=== PATIENT | female | born 1970 | race Caucasian/White ===

== ENCOUNTER 2017-03-27 21:27 | Emergency (ER) | payer OTHER ==
[2017-03-27 21:46] VITALS: BP 145/107
--- NOTE | 2017-03-27 22:57 | EDM.PDOC ---
ED HPI GENERAL MEDICAL PROBLEM - General Chief Complaint: Neck Problem Stated Complaint: [facility] Time Seen by Provider: 03/27/17 21:37 - History of Present Illness INITIAL COMMENTS - FREE TEXT/NARRATIVE: 47-year-old female presents emergency room via EMS brought in after a fairly sudden onset of sided weakness is started with left-sided shoulder spasm progressed into a left arm and left leg weakness. Patient developed speech difficulty shortly after this. Onset of symptoms approximately 8:50 PM [place] standard time. Upon arrival to the emergency room the patient is somewhat anxious she has a significant deficit on her left side her vital signs were assured to be normal and her blood sugar was okay she was rushed to CT. Past medical history significant for gastric bypass surgery in 2013, she's treated for hypothyroidism no prior history of strokes she has occasional headaches no history of significant migraines however she did have migraines when she was in grade school. Left Shoulder Pain Score (Numeric/FACES): 10 - Related Data Allergies Allergy/AdvReac Type Severity Reaction Status Date / Time cephalexin Allergy Rash Verified 06/29/14 16:23 sulfamethoxazole Allergy Rash Verified 03/27/17 21:52 [From Bactrim] trimethoprim [From Bactrim] Allergy Rash Verified 03/27/17 21:52 Home Meds: Home Meds Levothyroxine [Synthroid] 50 mcg PO DAILY 06/29/14 [History] Multivitamin [Flintstones] 1 tab PO DAILY 06/29/14 [History] Cyanocobalamin/FA/Pyridoxine [Folbic] 1 tab PO DAILY 03/28/17 [History] Meclizine [Antivert] 25 mg PO ASDIRECTED PRN 03/28/17 [History] Pantoprazole Sodium [Protonix] 40 mg PO DAILY 03/28/17 [History] Past Medical History Respiratory History: Reports: Asthma Psychiatric History: Reports: Anxiety Endocrine/Metabolic History: Reports: Hypothyroidism - Past Surgical History GI Surgical History: Reports: Bariatric Procedure, Cholecystectomy Female Surgical History: Reports: Hysterectomy Musculoskeletal Surgical History: Reports: Arthroscopic Knee, Shoulder Replacement, Other (See Below) Other Musculoskeletal Surgeries/Procedures:: hand fracture, neck fracture Social & Family History - Family History Family Medical History: Noncontributory - Tobacco Use Smoking Status *Q: Never Smoker Second Hand Smoke Exposure: Yes - Caffeine Use Caffeine Use: Reports: Coffee - Recreational Drug Use Recreational Drug Use: No ED ROS GENERAL - Review of Systems Review Of Systems: See Below Constitutional: Reports: No Symptoms HEENT: Reports: No Symptoms Respiratory: Reports: No Symptoms Cardiovascular: Reports: No Symptoms GI/Abdominal: Reports: No Symptoms Skin: Reports: No Symptoms Neurological: Reports: Headache, Numbness, Trouble Speaking, Weakness ED EXAM, NEURO - Physical Exam Exam: See Below Exam Limited By: Other (Expressive aphasia) General Appearance: Alert, Anxious Eye Exam: Bilateral Eye: EOMI, Normal Inspection, PERRL, Other (Visual terry intact bilaterally) Ears: Normal External Exam, Normal Canal, Hearing Grossly Normal, Normal TMs Nose: Normal Inspection, Normal Mucosa, No Blood Throat/Mouth: Normal Inspection, Normal Lips, Normal Gums, Normal Oropharynx, Normal Voice, No Airway Compromise Neck: Normal Inspection, Supple, Non-Tender, Full Range of Motion. No: Carotid Bruit, Lymphadenopathy (L), Lymphadenopathy (R) Respiratory/Chest: No Respiratory Distress, Lungs Clear, Normal Breath Sounds Cardiovascular: Regular Rate, Rhythm, No Edema, No Murmur GI/Abdominal: Normal Bowel Sounds, Soft, Non-Tender Neurological: Other (Subtle right-sided facial weakness significant left upper extremity and lower extremity weakness NIH stroke score of 8) Course - Vital Signs Last Recorded V/S: Last Vital Signs Temp 37.7 C 03/27/17 21:42 Pulse 102 H 03/27/17 21:42 Resp 24 H 03/27/17 21:42 BP 145/107 H 03/27/17 21:42 Pulse Ox 100 03/27/17 21:42 - Orders/Labs/Meds Orders: Active Orders 24 hr Category Date Time Status EKG 12 Lead [EKG Documentation Completion] [RC] STAT Care 03/27/17 21:50 Active Head wo Cont [CT] Stat Exams 03/27/17 21:45 Taken Labs: Laboratory Tests 03/27/17 03/27/17 03/27/17 Range/Units 21:43 21:43 21:43 WBC 9.96 (3.98-10.04) K/mm3 RBC 4.27 (3.98-5.22) M/mm3 Hgb 10.7 L (11.2-15.7) gm/L Hct 33.2 L (34.1-44.9) % MCV 77.8 L (79.4-94.8) fl MCH 25.1 L (25.6-32.2) pg MCHC 32.2 (32.2-35.5) g/dl RDW Std Deviation 45.2 (36.4-46.3) fL Plt Count 414 H (182-369) K/mm3 MPV 9.6 (9.4-12.3) fl Neut % (Auto) 47.8 (34.0-71.1) % Lymph % (Auto) 41.3 (19.3-51.7) % [place] % (Auto) 7.4 (4.7-12.5) % Eos % (Auto) 3.0 (0.7-5.8) Baso % (Auto) 0.3 (0.1-1.2) % Neut # (Auto) 4.76 (1.56-6.13) K/mm3 Lymph # (Auto) 4.11 H (1.18-3.74) K/mm3 [place] # (Auto) 0.74 H (0.24-0.36) K/mm3 Eos # (Auto) 0.30 (0.04-0.36) K/mm3 Baso # (Auto) 0.03 (0.01-0.08) K/mm3 PT 9.8 (8.0-13.0) SECONDS INR 0.90 Sodium 138 (136-145) mEq/L Potassium 3.5 (3.5-5.1) mEq/L Chloride 104 (98-107) mEq/L Carbon Dioxide 22 (21-32) mEq/L Anion Gap 15.5 H (5-15) BUN 16 (7-18) mg/dL Creatinine 1.1 H (0.55-1.02) mg/dL Est Cr Clr Drug Dosing TNP Estimated GFR (MDRD) 53 (>60) mL/min BUN/Creatinine Ratio 14.5 (14-18) Glucose 96 (74-106) mg/dL Calcium 9.2 (8.5-10.1) mg/dL Total Bilirubin 0.3 (0.2-1.0) mg/dL AST 29 (15-37) U/L ALT 45 (14-59) U/L Alkaline Phosphatase 72 (46-116) U/L Troponin I < 0.017 (0.00-0.056) ng/mL Total Protein 7.6 (6.4-8.2) g/dl Albumin 3.6 (3.4-5.0) g/dl Globulin 4.0 gm/dL Albumin/Globulin Ratio 0.9 L (1-2) Urine Color (Yellow) Urine Appearance (Clear) Urine pH (5.0-8.0) Ur Specific [place] (1.005-1.030) Urine Protein (Negative) Urine Glucose (UA) (Negative) Urine Ketones (Negative) Urine Occult Blood (Negative) Urine Nitrite (Negative) Urine Bilirubin (Negative) Urine Urobilinogen (0.2-1.0) Ur Leukocyte Esterase (Negative) Urine RBC (0-5) /hpf Urine WBC (0-5) /hpf Ur Epithelial Cells (0-5) /hpf Urine Bacteria (FEW) /hpf Urine Mucus (FEW) /hpf 03/27/17 Range/Units 23:10 WBC (3.98-10.04) K/mm3 RBC (3.98-5.22) M/mm3 Hgb (11.2-15.7) gm/L Hct (34.1-44.9) % MCV (79.4-94.8) fl MCH (25.6-32.2) pg MCHC (32.2-35.5) g/dl RDW Std Deviation (36.4-46.3) fL Plt Count (182-369) K/mm3 MPV (9.4-12.3) fl Neut % (Auto) (34.0-71.1) % Lymph % (Auto) (19.3-51.7) % [place] % (Auto) (4.7-12.5) % Eos % (Auto) (0.7-5.8) Baso % (Auto) (0.1-1.2) % Neut # (Auto) (1.56-6.13) K/mm3 Lymph # (Auto) (1.18-3.74) K/mm3 [place] # (Auto) (0.24-0.36) K/mm3 Eos # (Auto) (0.04-0.36) K/mm3 Baso # (Auto) (0.01-0.08) K/mm3 PT (8.0-13.0) SECONDS INR Sodium (136-145) mEq/L Potassium (3.5-5.1) mEq/L Chloride (98-107) mEq/L Carbon Dioxide (21-32) mEq/L Anion Gap (5-15) BUN (7-18) mg/dL Creatinine (0.55-1.02) mg/dL Est Cr Clr Drug Dosing Estimated GFR (MDRD) (>60) mL/min BUN/Creatinine Ratio (14-18) Glucose (74-106) mg/dL Calcium (8.5-10.1) mg/dL Total Bilirubin (0.2-1.0) mg/dL AST (15-37) U/L ALT (14-59) U/L Alkaline Phosphatase (46-116) U/L Troponin I (0.00-0.056) ng/mL Total Protein (6.4-8.2) g/dl Albumin (3.4-5.0) g/dl Globulin gm/dL Albumin/Globulin Ratio (1-2) Urine Color Yellow (Yellow) Urine Appearance Clear (Clear) Urine pH 6.0 (5.0-8.0) Ur Specific [place] 1.015 (1.005-1.030) Urine Protein Negative (Negative) Urine Glucose (UA) Negative (Negative) Urine Ketones Negative (Negative) Urine Occult Blood Negative (Negative) Urine Nitrite Negative (Negative) Urine Bilirubin Negative (Negative) Urine Urobilinogen 0.2 (0.2-1.0) Ur Leukocyte Esterase Negative (Negative) Urine RBC 0-5 (0-5) /hpf Urine WBC 0-5 (0-5) /hpf Ur Epithelial Cells Not seen (0-5) /hpf Urine Bacteria Rare (FEW) /hpf Urine Mucus Not seen (FEW) /hpf Meds: Medications Discontinued Medications Generic Name Dose Route Start Last Admin Trade Name Freq PRN Reason Stop Dose Admin Alteplase, Recombinant Confirm 03/27/17 22:33 Activase Administered 03/27/17 22:34 Dose 100 mg .ROUTE .STK-MED ONE Sodium Chloride Confirm 03/27/17 23:51 Normal Saline Administered 03/27/17 23:52 Dose 500 mls @ as directed .ROUTE .STK-MED ONE - Re-Assessments/Exams Free Text/Narrative Re-Assessment/Exam: 03/27/17 22:50 47-year-old female presents emergency room with significant left-sided weakness she was somewhat anxious when she got here patient developed symptoms approximately 850 this evening she was washing dishes develop some weakness in her left shoulder and some tightness this was followed by progressive arm and leg weakness. EMS was rapidly called. The patient was very anxious and she wrote arrived here but obviously had a left-sided deficit her vital signs were stable glucose okay. She was rushed to CT ultimately she had a negative head CT discussed the risks and benefits of thrombolytics with the patient and her agreed to lytic therapy. Case discussed with Dr. Gordon, neurologist at [facility] who recommended thrombolytic therapy as well. Patient will be transferred to the emergency room at [facility]. Prior to given thrombolytic therapy the risks and benefits were explained to the and the patient in detail including the potential risk for secondary to intracranial hemorrhage. Percentages given. The patient doesn't have any apparent contraindications. The patient nods her head with understanding of the risks and benefits. The voices understanding for risks and benefits both agree that this is the best approach to take. Departure - Departure Time of Disposition: 22:57 Disposition: DC/Tfer to Acute Hospital 02 Clinical Impression: CVA (cerebral vascular accident) - Discharge Information Forms: ED Department Discharge - My Orders Last 24 Hours: My Active Orders 03/27/17 21:50 EKG 12 Lead [EKG Documentation Completion] [RC] STAT - Assessment/Plan Last 24 Hours: My Active Orders 03/27/17 21:50 EKG 12 Lead [EKG Documentation Completion] [RC] STAT
[2017-03-27] MEDS ORDERED: Sodium Chloride 0.9% 500 ML ONE (23:51)
--- NOTE | 2017-03-28 07:11 | CT ---
Head CT Technique: Multiple axial sections through the brain were obtained. Intravenous contrast was not utilized. Comparison: Previous head CT exam of 01/29/12. Findings: Ventricles along with basal cisterns and sulci over the convexities appear within normal limits for the patient's age. No abnormal parenchymal densities are seen. No evidence of intracranial hemorrhage. No midline shift or mass effect is seen. Bone window settings show nothing acute within the sinuses. Incidental julius bullosa noted within the right nasal turbinate. No acute calvarial abnormality is seen. Impression: 1. No acute intracranial abnormality is identified. Diagnostic code #2 I agree with preliminary report issued by [facility] ([facility] preliminary report dictated on 03/27/17, 10:52 PM Central Time)
== END 2017-03-28 00:09 ==
LOC: JD.ED 21:27
DX: I63.9 Cerebral infarction, unspecified (principal); J45.909 Unspecified asthma, uncomplicated; F41.9 Anxiety disorder, unspecified; E03.9 Hypothyroidism, unspecified; Z98.84 Bariatric surgery status; Z90.49 Acquired absence of other specified parts of digestive tract; Z90.710 Acquired absence of both cervix and uterus; Z96.619 Presence of unspecified artificial shoulder joint; Z98.890 Other specified postprocedural states; Z79.899 Other long term (current) drug therapy; Z88.1 Allergy status to other antibiotic agents; Z88.2 Allergy status to sulfonamides
CPT/HCPCS: 36415; 70450; 80053; 81001; 84484; 85025; 85610; 93005; 96365; 99285; J2997; P9612

== ENCOUNTER 2019-08-08 20:22 | Emergency (ER) | payer OTHER ==
[2019-08-08 20:32] VITALS: BP 133/74; PULSE 88
[2019-08-08] MEDS ORDERED: HYDROmorphone 0.5 MG/0.5 ML Syringe IM ONE (20:43)
--- NOTE | 2019-08-08 20:49 | EDM.PDOC ---
ED HPI GENERAL MEDICAL PROBLEM - General Chief Complaint: Lower Extremity Injury/Pain Stated Complaint: foot injury Time Seen by Provider: 08/08/19 20:29 Source of Information: Reports: Patient, RN Notes Reviewed History Limitations: Reports: No Limitations - History of Present Illness INITIAL COMMENTS - FREE TEXT/NARRATIVE: Patient is a 49-year-old female who presents to the ER for evaluation of left foot pain after a fall. Patient notes while she was at home, she fell down 5 or 6 stairs, this resulted in her left foot becoming twisted underneath of her. She notes that she was not able to bear much weight on the extremity after this accident. She denies any ankle pain, states that her pain is in her left lateral midfoot, and does have some pain in her medial inferior knee on the left side when she bears weight. She did not take any sort of pain medication like Tylenol ibuprofen for this. She does note some numbness and tingling, but states she was also at hockey tonight and says she is cold. There are no other obvious injuries or deformities noted. She is denying pain anywhere else, she can move toes in all range of motion. She is also able to move her ankle with no obvious loss of range of motion. Left Feet Pain Score (Numeric/FACES): 4 - Related Data Allergies Allergy/AdvReac Type Severity Reaction Status Date / Time cefuroxime [From Ceftin] Allergy Hives Verified 08/08/19 20:30 cephalexin Allergy Rash Verified 08/08/19 20:30 hydrocodone Allergy Hives Verified 08/08/19 20:30 sulfamethoxazole Allergy Rash Verified 08/08/19 20:30 [From Bactrim] trimethoprim [From Bactrim] Allergy Rash Verified 08/08/19 20:30 Sulfa (Sulfonamide AdvReac Nausea and Verified 08/08/19 20:30 Antibiotics) Vomiting Home Meds: Home Meds Levothyroxine [Synthroid] 50 mcg PO DAILY 06/29/14 [History] Multivitamin [Flintstones] 1 tab PO DAILY 06/29/14 [History] Cyanocobalamin/FA/Pyridoxine [Folbic] 1 tab PO DAILY 03/28/17 [History] Meclizine [Antivert] 25 mg PO ASDIRECTED PRN 03/28/17 [History] Pantoprazole Sodium [Protonix] 40 mg PO DAILY 03/28/17 [History] ALPRAZolam [Xanax XR] 0.5 mg PO ASDIRECTED PRN 11/21/17 [History] buPROPion [Wellbutrin SR] 150 mg PO BID 11/21/17 [History] Acetaminophen/oxyCODONE [Percocet 325-5 MG] 1 each PO Q6H #24 tab 08/08/19 [Rx] Past Medical History Respiratory History: Reports: Asthma Psychiatric History: Reports: Anxiety Endocrine/Metabolic History: Reports: Hypothyroidism - Past Surgical History GI Surgical History: Reports: Bariatric Procedure, Cholecystectomy Female Surgical History: Reports: Hysterectomy Musculoskeletal Surgical History: Reports: Arthroscopic Knee, Shoulder Replacement, Other (See Below) Other Musculoskeletal Surgeries/Procedures:: hand fracture, neck fracture Social & Family History - Family History Family Medical History: Noncontributory - Tobacco Use Smoking Status *Q: Never Smoker - Caffeine Use Caffeine Use: Reports: Coffee Review of Systems - Review of Systems Review Of Systems: Comprehensive ROS is negative, except as noted in HPI. Musculoskeletal: Reports: Foot Pain (Left lateral midfoot pain), Joint Pain (L medial inferior knee pain). Denies: Joint Swelling Skin: Denies: Bruising Neurological: Reports: Numbness, Tingling ED EXAM, GENERAL - Physical Exam Exam: See Below Exam Limited By: No Limitations General Appearance: Alert, WD/WN, No Apparent Distress Respiratory/Chest: No Respiratory Distress, Lungs Clear, Normal Breath Sounds, No Accessory Muscle Use, Chest Non-Tender Cardiovascular: Normal Peripheral Pulses, Regular Rate, Rhythm, No Edema, No Murmur Peripheral Pulses: 3+: Dorsalis Pedis (L), Dorsalis Pedis (R) Extremities: Normal Inspection, Normal Range of Motion, Normal Capillary Refill , Other (Patient does have tenderness to the left lateral midfoot with palpation , no obvious deformity or bruising noted.) Neurological: Alert, Oriented, Normal Cognition, No Motor/Sensory Deficits Psychiatric: Normal Affect, Normal Mood Skin Exam: Warm, Dry, Intact, Normal Color, No Rash, Cool (both extremities are cool to the touch, patient states that she was a hockey game and it was cold there.). No: Ecchymosis Course - Vital Signs Last Recorded V/S: Last Vital Signs Temp 98.0 F 12/13/19 20:30 Pulse 88 08/08/19 20:30 Resp 16 08/08/19 20:30 BP 133/74 08/08/19 20:30 Pulse Ox 100 08/08/19 20:30 - Orders/Labs/Meds Orders: Active Orders 24 hr Category Date Time Status Communication Order [RC] ASDIRECTED Care 08/08/19 21:46 Active Ankle Min 3V Lt [CR] Stat Exams 08/08/19 20:36 Taken Foot Comp Min 3V Lt [CR] Stat Exams 08/08/19 21:11 Taken Knee 1V or 2V Lt [CR] Stat Exams 08/08/19 20:42 Taken DME for Discharge [COMM] Routine Oth 08/08/19 21:46 Ordered Meds: Medications Discontinued Medications Generic Name Dose Route Start Last Admin Trade Name Freq PRN Reason Stop Dose Admin Hydromorphone HCl 0.5 mg 08/08/19 20:43 08/08/19 21:02 Dilaudid IM 08/08/19 20:44 0.5 mg ONETIME ONE Administration Oxycodone/Acetaminophen 2 tab 08/08/19 21:45 08/08/19 21:55 Percocet 325-5 Mg PO 08/08/19 21:46 2 tab ONETIME ONE Administration - Re-Assessments/Exams Free Text/Narrative Re-Assessment/Exam: 08/08/19 20:48 Patient presents to the ED for the evaluation of left foot injury. Did order left foot x-rays, and left knee x-rays for evaluation. She does have pain with weightbearing in these places on this extremity. Did also order 0.5 mg IM Dilaudid for initial pain management. 08/08/19 21:12 Patient's knee x-ray is done, demonstrates no acute fracture abnormality. This was reviewed by myself and Dr. Milan. The x-ray tech did do ankle x-rays inadvertently, ankle appears to be within normal limits also no fracture or bony abnormality noted. Ankle joint appears to be in good alignment as well. Have reordered the foot x-ray as initially ordered, and the tech is going to retake the films at this time. Departure - Departure Time of Disposition: 21:47 Disposition: Home, Self-Care 01 Condition: Fair Clinical Impression: Sprain of foot, left Qualifiers: Encounter type: initial encounter Qualified Code(s): S93.602A - Unspecified sprain of left foot, initial encounter Left knee sprain Qualifiers: Encounter type: initial encounter Involved ligament of knee: unspecified ligament Qualified Code(s): S83.92XA - Sprain of unspecified site of left knee, initial encounter - Discharge Information *PRESCRIPTION DRUG MONITORING PROGRAM REVIEWED*: Yes *COPY OF PRESCRIPTION DRUG MONITORING REPORT IN PATIENT SULAIMAN: No Prescriptions: Acetaminophen/oxyCODONE [Percocet 325-5 MG] 1 each PO Q6H #24 tab Instructions: Knee Sprain, Adult, [id number] Referrals: PCP,None [Primary Care Provider] - Forms: ED Department Discharge, ED Return to Work/School Form Additional Instructions: You have been evaluated in the ED for your left foot injury. Your x-ray demonstrated no acute fractures or bony abnormality. Please use ice as tolerated to the affected area. You may take Tylenol 500 mg q6 hrs for pain relief. Do not exceed 4000mg Tylenol in a 24 hour time period. You were given a prescription for a strong pain medication, oxycodone/ acetaminophen 5/325, please take 1 tab every 6 hours as needed for pain not relieved by Tylenol alone. Please note this does contain Tylenol in it, so do not take more than 4000 mg in a 24-hour time span. These medications can be addictive, so please take as few as possible to achieve adequate pain control. These meds can also be quite constipating, recommend that you increase your oral fluid intake and take a stool softener like MiraLAX while taking these medications. Please use the crutches as tolerated for ambulation until it is not painful to bear weight. Please return to ED if your symptoms should change or worsen. Sepsis Event Note - Evaluation Sepsis Screening Result: No Definite Risk - Focused Exam Vital Signs: Vital Signs Temp Pulse Resp BP Pulse Ox 08/08/19 20:30 98.0 F 88 16 133/74 100 Date Exam was Performed: 08/08/19 Time Exam was Performed: 22:04 - My Orders Last 24 Hours: My Active Orders 08/08/19 20:36 Ankle Min 3V Lt [CR] Stat 08/08/19 20:42 Knee 1V or 2V Lt [CR] Stat 08/08/19 21:11 Foot Comp Min 3V Lt [CR] Stat 08/08/19 21:46 Communication Order [RC] ASDIRECTED DME for Discharge [COMM] Routine - Assessment/Plan Last 24 Hours: My Active Orders 08/08/19 20:36 Ankle Min 3V Lt [CR] Stat 08/08/19 20:42 Knee 1V or 2V Lt [CR] Stat 08/08/19 21:11 Foot Comp Min 3V Lt [CR] Stat 08/08/19 21:46 Communication Order [RC] ASDIRECTED DME for Discharge [COMM] Routine
[2019-08-08] MEDS ORDERED: Acetaminophen/oxyCODONE 325-5 MG Tab PO ONE (21:45)
--- NOTE | 2019-08-11 10:42 | CR ---
Left ankle: Four views of the left ankle were obtained. Comparison: No prior ankle imaging. Ankle mortise is symmetric. Very slight bony densities are noted off the distal tip of the medial malleolus compatible with old injury. No acute fracture, dislocation or other bony abnormality is appreciated. Impression: 1. Findings as noted above. 2. Nothing acute is appreciated. Diagnostic code #2 This report was dictated in [place] Standard Time
--- NOTE | 2019-08-11 10:42 | CR ---
Left foot: Four views of the left foot were obtained. Comparison: No previous foot exam. Very minimal plantar spur is seen. Joint spaces are preserved. No discrete fracture, dislocation or other bony abnormality is appreciated. Impression: 1. Minimal plantar spur. 2. Nothing acute is appreciated on left foot exam. Diagnostic code #2 This report was dictated in [place] Standard Time
--- NOTE | 2019-08-11 10:42 | CR ---
Left knee: AP and lateral views of the left knee were obtained. Comparison: No previous study. Slight osteophytes are noted off the medial knee. Minimal lateral joint space narrowing is noted. Minimal osteophytes are noted off the patella. No joint effusion is seen. No discrete fracture or other abnormality is appreciated. Impression: 1. Slight degenerative change as noted above. 2. Nothing acute is definitely appreciated on two-view left knee exam. Diagnostic code #2 This report was dictated in [place] Standard Time
== END 2019-08-08 22:08 | disposition home or self-care (01) ==
LOC: JD.ED 20:22
DX: S93.602A Unspecified sprain of left foot, initial encounter (principal); S83.92XA Sprain of unspecified site of left knee, initial encounter; E03.9 Hypothyroidism, unspecified; J45.909 Unspecified asthma, uncomplicated; F41.9 Anxiety disorder, unspecified; Z79.890 Hormone replacement therapy; Z79.899 Other long term (current) drug therapy; Z88.1 Allergy status to other antibiotic agents; Z88.2 Allergy status to sulfonamides; Z88.6 Allergy status to analgesic agent; W10.9XXA Fall (on) (from) unspecified stairs and steps, initial encounter; Y92.009 Unspecified place in unspecified non-institutional (private) residence as the place of occurrence of the external cause
CPT/HCPCS: 73560; 73610; 73630; 96372; 99283; A9270; J1170

== ENCOUNTER 2020-07-11 15:51 | Emergency (ER) | payer BC ==
[2020-07-11 16:35] VITALS: BP 150/100; PULSE 98
[2020-07-11] MEDS ORDERED: Sodium Chloride 0.9% 10 ML Syringe FLUSH PRN (17:26)
[2020-07-11] MEDS ORDERED: Ketorolac 30 MG/ML SDV IVPUSH ONE (17:27)
--- NOTE | 2020-07-11 17:34 | EDM.PDOC ---
ED HPI GENERAL MEDICAL PROBLEM - General Chief Complaint: Respiratory Problem Stated Complaint: CHEST PAIN,HEADACHE&SOB (COVID +) Time Seen by Provider: 07/11/20 17:12 Source of Information: Reports: Patient, RN Notes Reviewed History Limitations: Reports: No Limitations - History of Present Illness INITIAL COMMENTS - FREE TEXT/NARRATIVE: Patient is a 50-year-old female who presents to the ED for her ongoing COVID-19 symptoms. Patient notes that she has been symptomatic for 9 days, she is complaining of a cough, shortness of breath, diffuse chest pain with coughing, intermittent fever, body aches, and some ear pain and congestion. She was called by [facility] today to be checked on, and they urged her to come to the ER for management as she did not seem to be getting better. They stated that she should be checked for secondary infection like pneumonia. She does have a history of asthma. Her BMI is 36.3. Generalized Pain Score (Numeric/FACES): 8 - Related Data Allergies Allergy/AdvReac Type Severity Reaction Status Date / Time cefuroxime [From Ceftin] Allergy Hives Verified 07/11/20 16:35 cephalexin Allergy Rash Verified 07/11/20 16:35 sulfamethoxazole Allergy Rash Verified 07/11/20 16:35 [From Bactrim] trimethoprim [From Bactrim] Allergy Rash Verified 07/11/20 16:35 Sulfa (Sulfonamide AdvReac Nausea and Verified 07/11/20 16:35 Antibiotics) Vomiting Home Meds: Home Meds Levothyroxine [Synthroid] 50 mcg PO DAILY 06/29/14 [History] Multivitamin [Flintstones] 1 tab PO DAILY 06/29/14 [History] Cyanocobalamin/FA/Pyridoxine [Folbic] 1 tab PO DAILY 03/28/17 [History] Meclizine [Antivert] 25 mg PO ASDIRECTED PRN 03/28/17 [History] Pantoprazole Sodium [Protonix] 40 mg PO DAILY 03/28/17 [History] ALPRAZolam [Xanax XR] 0.5 mg PO ASDIRECTED PRN 11/21/17 [History] buPROPion [Wellbutrin SR] 150 mg PO BID 11/21/17 [History] Acetaminophen/oxyCODONE [Percocet 325-5 MG] 1 each PO Q6H #24 tab 08/08/19 [Rx] Past Medical History Respiratory History: Reports: Asthma Neurological History: Reports: Other (See Below) Other Neuro History: narcolepsy Psychiatric History: Reports: Anxiety Endocrine/Metabolic History: Reports: Hypothyroidism - Infectious Disease History Infectious Disease History: Reports: Novel Coronavirus - Past Surgical History GI Surgical History: Reports: Bariatric Procedure, Cholecystectomy Female Surgical History: Reports: Hysterectomy Musculoskeletal Surgical History: Reports: Arthroscopic Knee, Shoulder Replacement, Other (See Below) Other Musculoskeletal Surgeries/Procedures:: hand fracture, neck fracture Social & Family History - Family History Family Medical History: No Pertinent Family History - Tobacco Use Tobacco Use Status *Q: Never Tobacco User Second Hand Smoke Exposure: No - Caffeine Use Caffeine Use: Reports: None - Recreational Drug Use Recreational Drug Use: No ED ROS GENERAL - Review of Systems Review Of Systems: Comprehensive ROS is negative, except as noted in HPI. ED EXAM, GENERAL - Physical Exam Exam: See Below Exam Limited By: No Limitations General Appearance: Alert, WD/WN, No Apparent Distress Throat/Mouth: Normal Inspection, Normal Lips, Normal Teeth, Normal Gums, Normal Oropharynx, Normal Voice Respiratory/Chest: No Respiratory Distress, Lungs Clear, Normal Breath Sounds, No Accessory Muscle Use, Chest Non-Tender Cardiovascular: Normal Peripheral Pulses, Regular Rate, Rhythm, No Murmur Extremities: Normal Inspection, Normal Capillary Refill Neurological: Alert, Oriented, Normal Cognition, No Motor/Sensory Deficits Psychiatric: Normal Affect, Normal Mood Skin Exam: Warm, Dry, Intact, Normal Color, No Rash Course - Vital Signs Last Recorded V/S: Last Vital Signs Temp 96.9 F 07/11/20 16:31 Pulse 98 07/11/20 16:31 Resp 16 07/11/20 16:31 BP 150/100 H 07/11/20 16:31 Pulse Ox 98 07/11/20 16:31 - Orders/Labs/Meds Orders: Active Orders 24 hr Category Date Time Status Peripheral IV Care [RC] . DIRECTED Care 07/11/20 17:27 Ordered Chest 1V Frontal [CR] Stat Exams 07/11/20 17:26 Ordered Sodium Chloride 0.9% [Saline Flush] Med 07/11/20 17:26 Active 10 ml FLUSH ASDIRECTED PRN Peripheral IV Insertion Adult [OM.PC] Routine Oth 07/11/20 17:26 Ordered Medication Orders Sodium Chloride (Saline Flush) 10 ml FLUSH ASDIRECTED PRN PRN Reason: Keep Vein Open Last Admin: 07/11/20 18:36 Dose: 10 ml Documented by: VINAY Labs: Laboratory Tests 07/11/20 07/11/20 Range/Units 17:57 17:57 WBC 5.12 (3.98-10.04) K/mm3 RBC 4.53 (3.98-5.22) M/mm3 Hgb 13.7 (11.2-15.7) gm/dl Hct 42.7 (34.1-44.9) % MCV 94.3 (79.4-94.8) fl MCH 30.2 (25.6-32.2) pg MCHC 32.1 L (32.2-35.5) g/dl RDW Std Deviation 45.5 (36.4-46.3) fL Plt Count 264 D (182-369) K/mm3 MPV 9.7 (9.4-12.3) fl Neut % (Auto) 64.6 (34.0-71.1) % Lymph % (Auto) 24.0 (19.3-51.7) % Gage % (Auto) 10.0 (4.7-12.5) % Eos % (Auto) 1.2 (0.7-5.8) Baso % (Auto) 0.2 (0.1-1.2) % Neut # (Auto) 3.31 (1.56-6.13) K/mm3 Lymph # (Auto) 1.23 (1.18-3.74) K/mm3 Gage # (Auto) 0.51 H (0.24-0.36) K/mm3 Eos # (Auto) 0.06 (0.04-0.36) K/mm3 Baso # (Auto) 0.01 (0.01-0.08) K/mm3 Sodium 138 (136-145) mEq/L Potassium 3.5 (3.5-5.1) mEq/L Chloride 102 (98-107) mEq/L Carbon Dioxide 27 (21-32) mEq/L Anion Gap 12.5 (5-15) BUN 7 (7-18) mg/dL Creatinine 0.8 (0.55-1.02) mg/dL Est Cr Clr Drug Dosing 70.37 mL/min Estimated GFR (MDRD) > 60 (>60) mL/min BUN/Creatinine Ratio 8.8 L (14-18) Glucose 88 (74-106) mg/dL Calcium 8.6 (8.5-10.1) mg/dL Magnesium 1.9 (1.8-2.4) mg/dl Total Bilirubin 0.3 (0.2-1.0) mg/dL AST 18 (15-37) U/L ALT 27 (14-59) U/L Alkaline Phosphatase 90 (46-116) U/L Total Protein 6.9 (6.4-8.2) g/dl Albumin 3.3 L (3.4-5.0) g/dl Globulin 3.6 gm/dL Albumin/Globulin Ratio 0.9 L (1-2) Meds: Medications Generic Name Dose Route Start Last Admin Trade Name Freq PRN Reason Stop Dose Admin Sodium Chloride 10 ml 07/11/20 17:26 07/11/20 18:36 Saline Flush FLUSH 10 ml ASDIRECTED PRN Administration Keep Vein Open Discontinued Medications Generic Name Dose Route Start Last Admin Trade Name Freq PRN Reason Stop Dose Admin Bamlanivimab 700 mg/ Sodium 200 mls @ 200 mls/hr 07/11/20 17:27 07/11/20 18:37 Chloride IV 07/11/20 17:28 200 mls/hr ONETIME ONE Administration Ketorolac Tromethamine 30 mg 07/11/20 17:27 07/11/20 18:34 Toradol IVPUSH 07/11/20 17:28 30 mg ONETIME ONE Administration - Re-Assessments/Exams Free Text/Narrative Re-Assessment/Exam: 07/11/20 17:31 Patient presents to the ED for the evaluation of her ongoing COVID-19 symptoms. We will get a chest x-ray, get some basic labs, place an IV give her some IV Toradol, and she does meet criteria for Bamlanivimab at this time. I spoke with Ms. Espinoza to provide information about bamlanivimab treatment. I offered her the "Patient and caregiver JUANAA bamlanivimab fact sheet" to read and review. I stated that the drug has been approved by an emergency was authorization (EUA) process and has not been fully FDA reviewed or approved. The patient meets the EUA requirements. I discussed there are other potential treatment options that are currently not FDA approved to treat COVID-19. I did offer an opportunity to ask questions and all questions were answered. The patient voiced understanding and agreed to proceed with the treatment. 07/11/20 19:05 The patient's chest x-ray seems to be within normal limits. Labs are also within normal limits. She is receiving the monoclonal antibody treatment. She will be observed for an hour afterwards, and discharged home if she has no adverse effects. 07/11/20 20:27 Patient was reassessed at bedside, and states she is feeling well, is having no adverse effects. Departure - Departure Time of Disposition: 19:06 Disposition: Home, Self-Care 01 Condition: Good Clinical Impression: COVID-19 - Discharge Information *PRESCRIPTION DRUG MONITORING PROGRAM REVIEWED*: No *COPY OF PRESCRIPTION DRUG MONITORING REPORT IN PATIENT SULAIMAN: No Instructions: COVID-19 Frequently Asked Questions Referrals: Brianna Black, [facility] [Primary Care Provider] - Forms: ED Department Discharge Additional Instructions: You were seen in the ER today for ongoing and/or worsening respiratory symptoms. Your chest x-ray showed no signs of pneumonia at this time. Your oxygen levels were great at 97-98% on room air. Please try to increase your oral fluid intake, and eat multiple small meals throughout the day, to keep yourself healthy. You need to keep yourself nourished in order to fight off this disease. You can try a liquid diet like gatorade/powerade as well to get your electrolytes. You may take 500 mg Tylenol every hours 6 hours for pain/fever relief. Do not exceed 4000 mg Tylenol in a 24-hour time span. However, running a fever is your body's natural response to illness, and it allows the body to develop antibodies to disease, we are recommending trying to limit the use of Tylenol as much as possible to allow your body's natural immune response. Recommend you obtain a pulse oximeter and monitor your oxygen levels at home, you should place the monitor on your finger, and sit in a calm, quiet position for a few minutes and then record the number that is on the screen. If this consistently below 90% on room air without movement, this would be cause for concern to come back to the hospital for further management of your COVID-19 disease. You were given a monoclonal antibody, Bamlanivimab for ongoing management of your COVID-19, this should hopefully make your disease course better. And you should feel better in a few days. From what we know of this disease, the worst symptomatic timeframe is usually day 8-12. Sepsis Event Note (ED) - Evaluation Sepsis Screening Result: No Definite Risk - Focused Exam Vital Signs: Vital Signs Temp Pulse Resp BP Pulse Ox 07/11/20 16:31 96.9 F 98 16 150/100 H 98 - My Orders Last 24 Hours: My Active Orders 07/11/20 17:26 Chest 1V Frontal [CR] Stat Sodium Chloride 0.9% [Saline Flush] 10 ml FLUSH ASDIRECTED PRN Peripheral IV Insertion Adult [OM.PC] Routine 07/11/20 17:27 Peripheral IV Care [RC] . DIRECTED - Assessment/Plan Last 24 Hours: My Active Orders 07/11/20 17:26 Chest 1V Frontal [CR] Stat Sodium Chloride 0.9% [Saline Flush] 10 ml FLUSH ASDIRECTED PRN Peripheral IV Insertion Adult [OM.PC] Routine 07/11/20 17:27 Peripheral IV Care [RC] . DIRECTED
--- NOTE | 2020-07-12 13:39 | CR ---
PROCEDURE INFORMATION: Exam: XR Chest, 1 View Exam date and time: 07/11/2020 6:32 PM Age: 50 years old Clinical indication: Other: Covid+, shortness of breath. TECHNIQUE: Imaging protocol: XR of the chest Views: 1 view. COMPARISON: DX Chest 2V 12/04/2019 11:01 AM FINDINGS: Lungs: Unremarkable. No consolidation. Pleural space: Unremarkable. No pleural effusion. No pneumothorax. Heart/Mediastinum: Unremarkable. No cardiomegaly. Bones/joints: Unremarkable. IMPRESSION: No acute findings. Thank you for allowing us to participate in the care of your patient. Dictated and Authenticated by: Harsha Stevenson DO 07/11/2020 8:06 PM Central Time ([place] & [place]) GUCCI
== END 2020-07-11 20:49 | disposition home or self-care (01) ==
LOC: JD.ED 15:51
DX: U07.1 COVID-19 (principal); J45.909 Unspecified asthma, uncomplicated; G47.419 Narcolepsy without cataplexy; F41.9 Anxiety disorder, unspecified; E03.9 Hypothyroidism, unspecified; Z79.899 Other long term (current) drug therapy; Z88.1 Allergy status to other antibiotic agents; Z88.2 Allergy status to sulfonamides
CPT/HCPCS: 36415; 71045; 80053; 83735; 85025; 96365; 96375; 99285; J1885; J7050; 99283

== ENCOUNTER 2020-07-28 00:22 | Emergency (ER) | payer BC ==
[2020-07-28 00:30] VITALS: BP 107/62; PULSE 82
[2020-07-28] MEDS ORDERED: Sodium Chloride 0.9% 10 ML Syringe FLUSH PRN (00:40)
[2020-07-28] MEDS ORDERED: Sodium Chloride 0.9% 1,000 ML IV SCH (00:45)
[2020-07-28] MEDS ORDERED: Ondansetron 4 MG/2 ML SDV IVPUSH ONE (00:48)
--- NOTE | 2020-07-28 01:04 | EDM.PDOC ---
ED HPI GENERAL MEDICAL PROBLEM - General Chief Complaint: Drug or Alcohol Abuse Stated Complaint: [facility] Time Seen by Provider: 07/28/20 00:34 Source of Information: Reports: Patient, EMS, RN Notes Reviewed - History of Present Illness INITIAL COMMENTS - FREE TEXT/NARRATIVE: 50 yr old female has been drinking alcohol today after reportedly being sober for about 5 yrs. She denies any unusual medication other than her nl meds. Dry having at home, AMS, EMS called out by family. Abdomen Pain Score (Numeric/FACES): 8 - Related Data Allergies Allergy/AdvReac Type Severity Reaction Status Date / Time cefuroxime [From Ceftin] Allergy Hives Verified 07/11/20 16:35 cephalexin Allergy Rash Verified 07/11/20 16:35 sulfamethoxazole Allergy Rash Verified 07/11/20 16:35 [From Bactrim] trimethoprim [From Bactrim] Allergy Rash Verified 07/11/20 16:35 Sulfa (Sulfonamide AdvReac Nausea and Verified 07/11/20 16:35 Antibiotics) Vomiting Home Meds: Home Meds Levothyroxine [Synthroid] 50 mcg PO DAILY 06/29/14 [History] Multivitamin [Flintstones] 1 tab PO DAILY 06/29/14 [History] Cyanocobalamin/FA/Pyridoxine [Folbic] 1 tab PO DAILY 03/28/17 [History] Meclizine [Antivert] 25 mg PO ASDIRECTED PRN 03/28/17 [History] Pantoprazole Sodium [Protonix] 40 mg PO DAILY 03/28/17 [History] ALPRAZolam [Xanax XR] 0.5 mg PO ASDIRECTED PRN 11/21/17 [History] buPROPion [Wellbutrin SR] 150 mg PO BID 11/21/17 [History] Acetaminophen/oxyCODONE [Percocet 325-5 MG] 1 each PO Q6H #24 tab 08/08/19 [Rx] Past Medical History Respiratory History: Reports: Asthma Neurological History: Reports: Other (See Below) Other Neuro History: narcolepsy Psychiatric History: Reports: Anxiety Endocrine/Metabolic History: Reports: Hypothyroidism - Infectious Disease History Infectious Disease History: Reports: Novel Coronavirus - Past Surgical History GI Surgical History: Reports: Bariatric Procedure, Cholecystectomy Female Surgical History: Reports: Hysterectomy Musculoskeletal Surgical History: Reports: Arthroscopic Knee, Shoulder Replacement, Other (See Below) Other Musculoskeletal Surgeries/Procedures:: hand fracture, neck fracture Social & Family History - Family History Family Medical History: No Pertinent Family History - Tobacco Use Tobacco Use Status *Q: Never Tobacco User Second Hand Smoke Exposure: No - Caffeine Use Caffeine Use: Reports: None - Recreational Drug Use Recreational Drug Use: No ED ROS GENERAL - Review of Systems Review Of Systems: See Below Constitutional: Reports: Other (intoxicated) HEENT: Reports: No Symptoms Respiratory: Reports: No Symptoms Cardiovascular: Denies: Chest Pain GI/Abdominal: Reports: Nausea, Vomiting. Denies: Abdominal Pain Musculoskeletal: Reports: No Symptoms Skin: Reports: No Symptoms Neurological: Reports: Dizziness - Physical Exam Exam: See Below (AMS, does open eyes to verbal questioning, answering some questions) Eye Exam: Bilateral Eye: PERRL Head Exam: Atraumatic. No: Facial Swelling Neck: Supple Respiratory/Chest: No Respiratory Distress, Lungs Clear, Normal Breath Sounds. No: Rhonchi, Wheezing GI/Abdominal: Non-Tender Neuro Exam (Abbreviated): Other (AMS, does answer some simple questions, obeys commands) Extremities: Normal Inspection Skin Exam: Warm, Dry, Normal Color, No Rash #1 Interpretation EKG Date: 07/28/20 Rhythm: NSR [place]: Normal P-Wave: Present QRS: Other (IVCD) ST-T: Normal Course - Vital Signs Last Recorded V/S: Last Vital Signs Temp 97.0 F 07/28/20 00:25 Pulse 82 07/28/20 00:25 Resp 24 H 07/28/20 00:25 BP 107/62 07/28/20 00:25 Pulse Ox 100 07/28/20 00:25 - Orders/Labs/Meds Orders: Active Orders 24 hr Category Date Time Status Peripheral IV Care [RC] . DIRECTED Care 07/28/20 00:40 Active Sodium Chloride 0.9% [Normal Saline] 1,000 ml Med 07/28/20 00:45 Active IV ONETIME Sodium Chloride 0.9% [Saline Flush] Med 07/28/20 00:40 Active 10 ml FLUSH ASDIRECTED PRN Peripheral IV Insertion Adult [OM.PC] Stat Oth 07/28/20 00:40 Ordered Medication Orders Sodium Chloride (Normal Saline) 1,000 mls @ 999 mls/hr IV ONETIME MIGUEL Last Admin: 07/28/20 00:52 Dose: 999 mls/hr Documented by: [id number] Sodium Chloride (Saline Flush) 10 ml FLUSH ASDIRECTED PRN PRN Reason: Keep Vein Open Last Admin: 07/28/20 00:47 Dose: 10 ml Documented by: GENOVEVA Labs: Laboratory Tests 07/28/20 07/28/20 07/28/20 Range/Units 00:25 00:25 00:25 WBC 7.61 (3.98-10.04) K/mm3 RBC 4.31 (3.98-5.22) M/mm3 Hgb 13.0 (11.2-15.7) gm/dl Hct 40.4 (34.1-44.9) % MCV 93.7 (79.4-94.8) fl MCH 30.2 (25.6-32.2) pg MCHC 32.2 (32.2-35.5) g/dl RDW Std Deviation 46.7 H (36.4-46.3) fL Plt Count 393 H D (182-369) K/mm3 MPV 9.5 (9.4-12.3) fl Neut % (Auto) 41.7 (34.0-71.1) % Lymph % (Auto) 46.8 (19.3-51.7) % Davison % (Auto) 7.5 (4.7-12.5) % Eos % (Auto) 3.3 (0.7-5.8) Baso % (Auto) 0.3 (0.1-1.2) % Neut # (Auto) 3.18 (1.56-6.13) K/mm3 Lymph # (Auto) 3.56 (1.18-3.74) K/mm3 [place]ison # (Auto) 0.57 H (0.24-0.36) K/mm3 Eos # (Auto) 0.25 (0.04-0.36) K/mm3 Baso # (Auto) 0.02 (0.01-0.08) K/mm3 Sodium 138 (136-145) mEq/L Potassium 3.7 (3.5-5.1) mEq/L Chloride 101 (98-107) mEq/L Carbon Dioxide 23 (21-32) mEq/L Anion Gap 17.7 H (5-15) BUN 9 (7-18) mg/dL Creatinine 0.8 (0.55-1.02) mg/dL Est Cr Clr Drug Dosing 79.63 mL/min Estimated GFR (MDRD) > 60 (>60) mL/min BUN/Creatinine Ratio 11.3 L (14-18) Glucose 154 H (74-106) mg/dL Calcium 8.7 (8.5-10.1) mg/dL Magnesium 2.0 (1.8-2.4) mg/dl Total Bilirubin 0.2 (0.2-1.0) mg/dL AST 23 (15-37) U/L ALT 29 (14-59) U/L Alkaline Phosphatase 96 (46-116) U/L Total Protein 7.1 (6.4-8.2) g/dl Albumin 3.3 L (3.4-5.0) g/dl Globulin 3.8 gm/dL Albumin/Globulin Ratio 0.9 L (1-2) Ethyl Alcohol 0.22 (0.00) gm% Meds: Medications Generic Name Dose Route Start Last Admin Trade Name Freq PRN Reason Stop Dose Admin Sodium Chloride 1,000 mls @ 999 mls/hr 07/28/20 00:45 07/28/20 00:52 Normal Saline IV 999 mls/hr ONETIME MIGUEL Administration Sodium Chloride 10 ml 07/28/20 00:40 07/28/20 00:47 Saline Flush FLUSH 10 ml ASDIRECTED PRN Administration Keep Vein Open Discontinued Medications Generic Name Dose Route Start Last Admin Trade Name Freq PRN Reason Stop Dose Admin Lactated Ringer's 1,000 mls @ 999 mls/hr 07/28/20 02:55 07/28/20 02:56 Ringers, Lactated IV 07/28/20 03:55 999 mls/hr .BOLUS ONE Administration Ondansetron HCl 4 mg 07/28/20 00:48 07/28/20 00:53 Zofran IVPUSH 07/28/20 00:49 4 mg ONETIME ONE Administration - Re-Assessments/Exams Free Text/Narrative Re-Assessment/Exam: 07/28/20 03:05. Sleeping. Etoh came back at 0.22, high but not as high as expected based on initial presentation. Have given 1 liter NS, will now give a liter LR and let her continue to sleep it off. 07/28/20 04:28. Have given 2 liters of IV fluid, up to the bathroom without di fficulty, feels ready to go home, discharge instr. as documented. Departure - Departure Time of Disposition: 04:25 Disposition: Home, Self-Care 01 Condition: Fair Clinical Impression: Alcohol intoxication Qualifiers: Complication of substance-induced condition: uncomplicated Qualified Code(s): F10.920 - Alcohol use, unspecified with intoxication, uncomplicated - Discharge Information Instructions: Binge-Drinking Information, Adult Referrals: PCP,None [Primary Care Provider] - Forms: ED Department Discharge Additional Instructions: Avoid further alcohol. Follow up [facility] if you need any help to stop drinking or avoid further alcohol abuse. Sepsis Event Note (ED) - Evaluation Sepsis Screening Result: No Definite Risk - Focused Exam Vital Signs: Vital Signs Temp Pulse Resp BP Pulse Ox 07/28/20 00:25 97.0 F 82 24 H 107/62 100 - My Orders Last 24 Hours: My Active Orders 07/28/20 00:40 Peripheral IV Care [RC] . DIRECTED Sodium Chloride 0.9% [Saline Flush] 10 ml FLUSH ASDIRECTED PRN Peripheral IV Insertion Adult [OM.PC] Stat 07/28/20 00:45 Sodium Chloride 0.9% [Normal Saline] 1,000 ml IV ONETIME - Assessment/Plan Last 24 Hours: My Active Orders 07/28/20 00:40 Peripheral IV Care [RC] . DIRECTED Sodium Chloride 0.9% [Saline Flush] 10 ml FLUSH ASDIRECTED PRN Peripheral IV Insertion Adult [OM.PC] Stat 07/28/20 00:45 Sodium Chloride 0.9% [Normal Saline] 1,000 ml IV ONETIME
[2020-07-28] MEDS ORDERED: Lactated Ringers 1,000 ML IV ONE (02:55)
== END 2020-07-28 05:00 | disposition home or self-care (01) ==
LOC: JD.ED 00:22
DX: F10.120 Alcohol abuse with intoxication, uncomplicated (principal); J45.909 Unspecified asthma, uncomplicated; F41.9 Anxiety disorder, unspecified; E03.9 Hypothyroidism, unspecified; Z79.899 Other long term (current) drug therapy; Z88.1 Allergy status to other antibiotic agents; Z88.2 Allergy status to sulfonamides
CPT/HCPCS: 36415; 80053; 80307; 83735; 85025; 96374; 99284; J2405; J7030; J7120; 93010

== ENCOUNTER 2022-04-21 02:38 | Emergency (ER) | payer BC ==
[2022-04-21 02:50] VITALS: BP 120/91; PULSE 88
[2022-04-21] MEDS ORDERED: HYDROmorphone 1 MG/ML Syringe IM ONE (03:13)
== END 2022-04-21 04:00 | disposition home or self-care (01) ==
LOC: JD.ED 02:38
DX: K04.7 Periapical abscess without sinus (principal); E03.9 Hypothyroidism, unspecified; Z88.1 Allergy status to other antibiotic agents; Z88.2 Allergy status to sulfonamides; Z79.899 Other long term (current) drug therapy; Z86.16 Personal history of COVID-19
CPT/HCPCS: 96372; 99282; J1170; 99283

== ENCOUNTER 2023-08-31 17:40 | Emergency (ER) | payer BC ==
[2023-08-31 17:54] VITALS: PULSE 88
[2023-08-31] MEDS ORDERED: HYDROmorphone 1 MG/ML Syringe IM ONE (18:04)
[2023-08-31 20:28] VITALS: BP 129/80
== END 2023-08-31 20:03 | disposition home or self-care (01) ==
LOC: JD.ED 17:40
DX: M25.512 Pain in left shoulder (principal); M25.571 Pain in right ankle and joints of right foot; J45.909 Unspecified asthma, uncomplicated; K21.9 Gastro-esophageal reflux disease without esophagitis; E03.9 Hypothyroidism, unspecified; E66.9 Obesity, unspecified; Z68.31 Body mass index [BMI] 31.0-31.9, adult; Z86.16 Personal history of COVID-19; Z88.1 Allergy status to other antibiotic agents; Z88.2 Allergy status to sulfonamides; Z79.899 Other long term (current) drug therapy; W01.0XXA Fall on same level from slipping, tripping and stumbling without subsequent striking against object, initial encounter
CPT/HCPCS: 73030; 73610; 73630; 96372; 99283; J1170

== ENCOUNTER 2024-05-10 07:32 | Emergency (ER) | payer BC ==
[2024-05-10] MEDS ORDERED: Sodium Chloride 0.9% 10 ML Syringe FLUSH PRN (07:50)
[2024-05-10 07:53] VITALS: BP 143/133; PULSE 121
[2024-05-10 08:12] LABS: BASOPHILS PERCENT AUTO 0.5 % (0.0-1.0); EOSINOPHILS ABSOLUTE AUTO 0.2 K/mm3 (0.0-0.4); EOSINOPHILS PERCENT AUTO 2.4 % (0.0-6.0); HEMATOCRIT 37.2 % (37.0-47.0); HEMOGLOBIN 12.1 gm/dl (12.0-16.0); IMMATURE GRAN ABSOLUTE AUTO 0.03 K/mm3 (0.00-0.05); IMMATURE GRAN PERCENT AUTO 0.4 % (0.0-0.4); LYMPHOCYTES ABSOLUTE AUTO 1.6 K/mm3 (1.0-4.8); LYMPHOCYTES PERCENT AUTO 20.4 % (24.0-44.0); MEAN CORPUSCULAR HEMOGLOBIN 28.5 pg (28.0-32.0); MEAN CORPUSCULAR HGB CONC 32.5 g/dl (32.0-36.0); MEAN CORPUSCULAR VOLUME 87.7 fl (83.0-99.0); MEAN PLATELET VOLUME 9.9 fl (9.4-12.3); MONOCYTES ABSOLUTE AUTO 0.6 K/mm3 (0.0-0.8); NEUTROPHILS ABSOLUTE AUTO 5.5 K/mm3 (1.8-7.7); NEUTROPHILS PERCENT AUTO 69.3 % (41.0-71.0); PLATELET COUNT,PLT 283 K/mm3 (150-400); RED BLOOD CELL COUNT 4.24 M/mm3 (4.10-5.30); WHITE BLOOD CELL COUNT,WBC 7.99 K/mm3 (3.9-11.3)
[2024-05-10 08:39] LABS: A/G RATIO 1.1 (1-2); ALBUMIN 3.5 g/dl (3.4-5.0); ANION GAP 11.8 (5-15); BILIRUBIN TOTAL 0.3 mg/dL (0.2-1.0); CALCIUM 9.2 mg/dL (8.5-10.1); EST CRCL DRUG DOSING (CG) 51.46 mL/min; MAGNESIUM 1.9 mg/dL (1.8-2.4); POTASSIUM,K 3.8 mEq/L (3.5-5.1); PROTEIN TOTAL,TP 6.8 g/dl (6.4-8.2)
[2024-05-10 10:03] LABS: APPEARANCE,URINE SLT CLOUDY (Clear); BILIRUBIN,URINE NEGATIVE (Negative); COLOR,URINE YELLOW (Yellow); GLUCOSE,URINE NEGATIVE (Negative); KETONES,URINE NEGATIVE (Negative); LEUKOCYTE ESTERASE,URINE 2+ (Negative); NITRITE,URINE NEGATIVE (Negative); OCCULT BLOOD,URINE NEGATIVE (Negative); PROTEIN,URINE NEGATIVE (Negative); UROBILINOGEN,URINE 0.2 (0.2-1.0)
[2024-05-10 10:20] LABS: BACTERIA,URINE MANY /hpf (FEW); MUCUS,URINE FEW /hpf (FEW); RBC,URINE 0-5 /hpf (0-5); SQUAMOUS EPITHELIAL CELLS,UR 0-5 /hpf (0-5); WBC,URINE 50-75 /hpf (0-5)
== END 2024-05-10 11:24 | disposition home or self-care (01) ==
LOC: JD.ED 07:32
DX: G47.419 Narcolepsy without cataplexy (principal); R55 Syncope and collapse; N39.0 Urinary tract infection, site not specified; J45.909 Unspecified asthma, uncomplicated; K21.9 Gastro-esophageal reflux disease without esophagitis; E03.9 Hypothyroidism, unspecified; E66.9 Obesity, unspecified; Z86.16 Personal history of COVID-19; Z90.710 Acquired absence of both cervix and uterus; Z79.899 Other long term (current) drug therapy; Z88.1 Allergy status to other antibiotic agents; Z88.2 Allergy status to sulfonamides; Z88.8 Allergy status to other drugs, medicaments and biological substances; W19.XXXA Unspecified fall, initial encounter
CPT/HCPCS: 36415; 70450; 70450-26; 72125; 72125-26; 72170; 72170-26; 73552-26-LT; 73552-LT; 80053; 81001; 83735; 84484; 85025; 87086; 87088; 87186; 93005; 99285